=== PATIENT | female | born 1970 | race Caucasian/White ===

== ENCOUNTER 2024-02-15 22:36 | Inpatient (IN) | payer OTHER ==
[~2024-02-15] VITALS: Ht 152.4 cm; Wt 69.9 kg
[2024-02-16] MEDS: ONDANSETRON HCL 4MG/2ML INJ IV STA (00:13)
[2024-02-16] MEDS: SODIUM CHLORIDE 0.9% 1,000 ML IV ONE (00:14)
[2024-02-16] MEDS: KETOROLAC 30MG/ML VIAL IV STA (00:14)
[2024-02-16 00:19] LABS: BASOPHILS % 0.3 % (0.0-2.0); EOSINOPHILS % 0.7 % (0.0-5.0); HEMATOCRIT. 33.7 % (36.0-48.0); HEMOGLOBIN. 11.6 g/dL (12.0-16.0); LYMPHOCYTES % 16.9 % (20.0-50.0); MEAN CORPUSCULAR HEMOGLOBIN 30.5 pg (28.0-32.0); MEAN CORPUSCULAR HGB CONC 34.4 g/dL (31.0-37.0); MEAN CORPUSCULAR VOLUME 88.8 fL (81.0-99.0); MONOCYTES % 7.1 % (2.0-8.0); PLATELET 316 x1000/uL (130-400); RED CELL DISTRIBUTION WIDTH 12.9 % (11.6-14.6); WHITE BLOOD COUNT 11.8 x1000/uL (4.5-11.0)
[2024-02-16 00:21] LABS: CLARITY URINE CLEAR (CLEAR); COLOR URINE YELLOW (YELLOW); GLUCOSE URINE NEGATIVE (NEGATIVE); KETONES URINE NEGATIVE (NEGATIVE); LEUKOCYTE ESTERASE URINE NEGATIVE (NEGATIVE); NITRITE URINE NEGATIVE (NEGATIVE); OCCULT BLOOD URINE TRACE (NEGATIVE); PH URINE 7.5 (4.5-8.0); PROTEIN URINE NEGATIVE (NEGATIVE); SPECIFIC GRAVITY URINE 1.004 (1.005-1.030); UROBILINOGEN URINE 0.2 E.U./dL (0.2-1.0)
[2024-02-16 00:27] LABS: CHLORIDE 106 mEq/L (98-107); POTASSIUM 3.6 mEq/L (3.5-5.1); SODIUM 141 mEq/L (136-145)
[2024-02-16 00:28] LABS: CALCIUM 9.3 mg/dL (8.7-10.4); CARBON DIOXIDE 29 mEq/L (21-32)
[2024-02-16 00:31] LABS: HCG SCREEN NEGATIVE
[2024-02-16 00:33] LABS: CREATININE 0.7 mg/dL (0.6-1.0); GLUCOSE 102 mg/dL (70-105); UREA NITROGEN BLOOD 7 mg/dL (9-23)
[2024-02-16 00:35] LABS: ALANINE AMINOTRANSFERASE 8 IU/L (10-49); ALBUMIN 4.2 g/dL (3.2-4.8); ASPARTATE AMINOTRANSFERASE 14 IU/L (<34); BILIRUBIN TOTAL 0.3 mg/dL (0.1-1.0)
[2024-02-16 00:36] LABS: PROTEIN TOTAL 7.6 g/dL (6.0-8.3)
[2024-02-16 00:38] LABS: BILIRUBIN DIRECT < 0.1 mg/dL (<=3.0)
[2024-02-16 00:54] LABS: BACTERIA URINE NONE SEEN; RBC URINE 0-2 /hpf (0-2); SQUAMOUS EPITHELIAL CELL URINE 1+ /lpf (RARE/1+); WBC URINE 0-2 /hpf (0-2)
[2024-02-16] MEDS: PIPERACILLIN/TAZO 3.375G/50ML 50 ML IV ONE (04:07)
[2024-02-16] MEDS: PIPERACILLIN/TAZO 3.375G/50ML 50 ML IV NR (04:07)
[2024-02-16 04:15] VITALS: BP 92/56; PULSE 60; RESP 20; TEMP 97.7
[2024-02-16 04:30] VITALS: BP 92/56; PULSE 61; RESP 20; TEMP 97.7
[2024-02-16] MEDS ORDERED: SKIN ADHESIVE 0.7 GM EA TOP ONE (07:27)
[2024-02-16] MEDS ORDERED: BUPIVACAINE HCL/PF 0.5% (5MG/ML) 10ML ONE (07:27)
[2024-02-16] MEDS: DEXT 5%/0.45% NACL 1000ML 1,000 ML IV SCH (07:30)
[2024-02-16] MEDS ORDERED: NALOXONE HCL 0.4MG/ML VIAL IV PRN (07:45)
[2024-02-16] MEDS ORDERED: PROPOFOL 200MG/20ML VIAL IV ONE (09:49)
[2024-02-16] MEDS ORDERED: SUCCINYLCHOLINE CHLORIDE 200MG/10ML IV ONE (09:49)
[2024-02-16] MEDS ORDERED: CEFAZOLIN SODIUM 1000MG/VIAL ONE (09:49)
[2024-02-16] MEDS ORDERED: FENTANYL CITRATE/PF 50MCG/ML 2ML VIAL ONE (09:50)
[2024-02-16] MEDS ORDERED: MIDAZOLAM HCL 2 MG/2 ML VIAL ONE (09:50)
[2024-02-16] MEDS ORDERED: ROCURONIUM BROMIDE 10MG/ML VIAL 5ML IV ONE (09:56)
[2024-02-16] MEDS ORDERED: GLYCOPYRROLATE 0.2 MG/ML 2ML VIAL ONE ×2 (09:58)
[2024-02-16] MEDS ORDERED: NEOSTIGMINE METHYLSULFATE 1MG/ML 10 ML VIAL ONE (09:58)
[2024-02-16] MEDS ORDERED: MEPERIDINE HCL/PF 25MG/ML CPJ IV PRN (10:15)
[2024-02-16] MEDS ORDERED: LABETALOL 5MG/ML 4ML INJ IV PRN (10:15)
[2024-02-16] MEDS ORDERED: ONDANSETRON HCL 4MG/2ML INJ IV PRN (10:15)
[2024-02-16] MEDS: HYDROMORPHONE HCL/PF 2MG/ML CPJ IV PRN (12:03)
[2024-02-16] MEDS: CEFTRIAXONE 1GM/50ML 50 ML IV SCH (14:01)
[2024-02-16] MEDS: METRONIDAZOLE 500 MG PREMIX 100 ML IV SCH (14:01)
[2024-02-16 16:00] VITALS: BP 101/56; PULSE 74; RESP 18; TEMP 97.9
[2024-02-16] MEDS: ONDANSETRON HCL 4MG/2ML INJ IV PRN (19:55)
[2024-02-16] MEDS: MORPHINE SULFATE 2 MG/ML CPJ (NOT FOR IM USE) IV PRN (19:56)
[2024-02-16 20:00] VITALS: BP 99/55; PULSE 76; RESP 19; TEMP 97.7
[2024-02-17] VITALS: BP 103/50; PULSE 69; RESP 20; TEMP 97.7
[2024-02-17 04:00] VITALS: BP 105/41; PULSE 73; RESP 19; TEMP 97.5
[2024-02-17 08:00] VITALS: BP 93/49; PULSE 84; RESP 19; TEMP 100.4
[2024-02-17 12:00] VITALS: BP 97/45; PULSE 69; RESP 20; TEMP 99.5
[2024-02-17 16:00] VITALS: BP 102/48; PULSE 68; RESP 19; TEMP 98.9
[2024-02-17 20:00] VITALS: BP 127/60; PULSE 74; RESP 18; TEMP 97.7
[2024-02-18 04:00] VITALS: BP 124/67; PULSE 84; RESP 19; TEMP 97.7
[2024-02-18 07:19] LABS: HEMATOCRIT 29.1 % (36.0-48.0); HEMOGLOBIN 9.9 g/dL (12.0-16.0); MEAN CORPUSCULAR HGB CONC 33.9 g/dL (31.0-37.0); MEAN CORPUSCULAR VOLUME 88.4 fL (81.0-99.0); PLATELET 244 x1000/uL (130-400); RED BLOOD CELL COUNT 3.29 mill/uL (4.2-5.4); RED CELL DISTRIBUTION WIDTH 13.1 % (11.6-14.6); WHITE BLOOD COUNT 8.8 x1000/uL (4.5-11.0)
[2024-02-18 08:00] VITALS: BP 122/73; PULSE 88; RESP 19; TEMP 98.8
[2024-02-18 12:00] VITALS: BP 113/58; PULSE 58; RESP 19; TEMP 98.6
[2024-02-18 16:00] VITALS: BP 116/53; PULSE 76; RESP 20; TEMP 99.7
[2024-02-18 20:00] VITALS: BP 117/74; PULSE 67; RESP 18; TEMP 97.6
[2024-02-19] VITALS: BP 106/61; PULSE 72; RESP 19; TEMP 97.7
[2024-02-19 04:00] VITALS: BP 118/67; PULSE 72; RESP 18; TEMP 97.5
[2024-02-19 08:00] VITALS: BP 122/59; PULSE 68; RESP 20; TEMP 98.1
[2024-02-19 12:00] VITALS: BP 101/49; PULSE 62; RESP 20; TEMP 98.1
[2024-02-19 16:00] VITALS: BP 94/52; PULSE 66; RESP 20; TEMP 97.9
[2024-02-19 20:00] VITALS: BP 117/55; PULSE 67; RESP 18; TEMP 97.6
[2024-02-20] VITALS: BP 118/63; PULSE 68; RESP 20; TEMP 97.7
[2024-02-20 04:00] VITALS: BP 124/70; PULSE 62; RESP 20; TEMP 97.5
[2024-02-20 08:00] VITALS: BP 126/68; PULSE 66; RESP 20; TEMP 98.4
[2024-02-20 12:00] VITALS: BP 116/62; RESP 20; TEMP 98
[2024-02-20 16:00] VITALS: BP 100/60; RESP 20; TEMP 98.2
[2024-02-21 12:00] VITALS: BP 111/57; PULSE 68; RESP 19; TEMP 98.6
[2024-02-21 16:00] VITALS: BP 105/55; PULSE 66; RESP 20; TEMP 96.7
[2024-02-22 08:00] VITALS: BP 115/59; PULSE 58; RESP 19; TEMP 97.9
[2024-02-22 12:00] VITALS: BP 112/56; PULSE 70; RESP 19; TEMP 97.7
[2024-02-22 12:27] VITALS: BP 112/56; PULSE 70; TEMP 97.7; O2SAT 96
== END 2024-02-22 16:40 | disposition home or self-care (01) | DRG 231 ==
LOC: ER 22:36 → 6EST 02-16 03:03 → EDBEDREQ 02-16 03:08 → EDBEDREQTM 02-16 03:08
PROVIDERS: ADMIT Internal Medicine; ATTEND Internal Medicine
PROC: 0DTF0ZZ Resection of Right Large Intestine, Open Approach (ICD-10-PCS; principal; 2024-02-16)
DX: K57.32 Diverticulitis of large intestine without perforation or abscess without bleeding (principal); K35.80 Unspecified acute appendicitis; E66.9 Obesity, unspecified; Z68.30 Body mass index [BMI] 30.0-30.9, adult
CPT/HCPCS: 36415; 71045; 74176; 76705; 80048; 80076; 81003; 83605; 84703; 85025; 85027; 88307; 93005; 99285; C1893; J0330; J0690; J0696; J1170; J1885; J2250; J2270; J2405; J2543; J2704; J2710; J3010; J3490; J7030